=== PATIENT | male | born 1940 | race Caucasian/White ===

== ENCOUNTER 2022-08-05 06:00 | Emergency (ER) | payer MEDICARE ==
[~2022-08-05] VITALS: Ht 177.8 cm; Wt 63.5 kg
--- NOTE | 2022-08-05 06:05 | NUR ---
SREEKANTH 860 FROM HOME C/O LOST BALANCE WHILE IN THE RESTROOM. HIT HEAD ON WALL. -LOC -THINNERS. LAC ON HEAD. PT A/OX3. TOLERATING R/A WELL WITH NO RESP DISTRESS. SAFETY MEASURES IN PLACE.
--- NOTE | 2022-08-05 06:35 | NUR ---
DR OSBORN AT PT'S BEDSIDE APPLYING PATRICK TO SCALP
--- NOTE | 2022-08-05 06:44 | NUR ---
PT TAKEN TO CT VIA [facility]
--- NOTE | 2022-08-05 09:13 | NUR ---
wound care provided.Patient discharged to home in stable condition. Written and verbal after care instructions given. Patient verbalizes understanding of instruction.
[2022-08-05 09:16] VITALS: BP 126/65
== END 2022-08-05 09:17 | disposition home or self-care (01) ==
LOC: ER 06:04
DX: S01.81XA Laceration without foreign body of other part of head, initial encounter (principal); Z88.0 Allergy status to penicillin; W18.30XA Fall on same level, unspecified, initial encounter; Y93.89 Activity, other specified; Y92.89 Other specified places as the place of occurrence of the external cause; Y99.8 Other external cause status
CPT/HCPCS: 70450-TC; 72125-TC

== ENCOUNTER 2022-08-13 11:29 | Emergency (ER) | payer MEDICARE ==
[~2022-08-13] VITALS: Ht 172.7 cm; Wt 56.7 kg
[2022-08-13 11:40] VITALS: BP 140/56
--- NOTE | 2022-08-13 11:45 | NUR ---
THE PATIENT PRESENTED TO ER REQUESTING STAPLE REMOVAL ON TOP OF HEAD "APPLIED HERE 8 DAYS AGO". DENIES PAIN. WILL CONTINUE TO MONITOR THE PATIENT.
--- NOTE | 2022-08-13 13:05 | NUR ---
Patient discharged to home in stable condition. Written and verbal after care instructions given. Patient verbalizes understanding of instruction.
== END 2022-08-13 13:05 | disposition home or self-care (01) ==
LOC: ER 11:38
DX: S01.01XD Laceration without foreign body of scalp, subsequent encounter (principal); X58.XXXD Exposure to other specified factors, subsequent encounter
CPT/HCPCS: 99281; A6403

== ENCOUNTER 2022-08-15 13:52 | Emergency (ER) | payer MEDICARE ==
[~2022-08-15] VITALS: Ht 172.7 cm; Wt 59.4 kg
[2022-08-15] MEDS ORDERED: ACETAMINOPHEN ES 500 MG TABLET ONE (14:58)
[2022-08-15] MEDS ORDERED: IV NS 0.9% 500 ML BAG IV ONE (15:00)
[2022-08-15] MEDS ORDERED: ACETAMINOPHEN ES 500 MG TABLET PO ONE (15:00)
[2022-08-15 15:23] LABS: BASOPHILS # (AUTO) 0.1 K/uL (0.0-0.2); BASOPHILS % (AUTO) 0.9 % (0.0-2.0); EOSINOPHILS % (AUTO) 1.1 % (0.0-6.0); HEMATOCRIT 27 % (39-51); HEMOGLOBIN 8.3 g/dL (13.5-17.5); LYMPHOCYTES # (AUTO) 1.1 K/uL (0.8-4.8); LYMPHOCYTES % (AUTO) 12.1 % (20.0-44.0); MEAN CORPUSCULAR HGB CONC 31 g/dl (31.0-36.0); MEAN CORPUSCULAR VOLUME 90 fL (80-96); MONOCYTES # (AUTO) 1.3 K/uL (0.1-1.30); MONOCYTES % (AUTO) 13.7 % (2.0-12.0); NEUTROPHILS # (AUTO) 6.7 K/uL (1.8-8.9); NEUTROPHILS % (AUTO) 72.2 % (43.0-81.0); PLATELET COUNT (AUTO) 261 K/uL (150-450); RED BLOOD CELL COUNT(AUTO) 2.95 MIL/uL (4.5-6.0); WHITE BLOOD COUNT (AUTO) 9.2 K/uL (4.3-11.0)
--- NOTE | 2022-08-15 15:54 | NUR ---
bg [id number]
--- NOTE | 2022-08-15 15:54 | NUR ---
covid swab collected and sent to lab
[2022-08-15 16:02] LABS: CALCIUM, SERUM 8.6 mg/dL (8.5-10.1); CARBON DIOXIDE 22 mmol/L (21-32); CHLORIDE 99 mmol/L (98-107); CREATININE 1.6 mg/dL (0.6-1.3); GLUCOSE 125 mg/dL (74-106); POTASSIUM 3.8 mmol/L (3.5-5.1); SODIUM SERUM 133 mmol/L (136-145); UREA NITROGEN, BLOOD 33 mg/dL (7-18)
[2022-08-15 16:13] LABS: ALANINE AMINOTRANSFERASE 27 U/L (12-78); ALBUMIN 2.6 g/dL (3.4-5.0); ALKALINE PHOSPHATASE 54 U/L (46-116); ASPARTATE AMINOTRANSFERASE 30 U/L (15-37); BILIRUBIN,DIRECT 0.2 mg/dL (0.0-0.2); BILIRUBIN,TOTAL 0.6 mg/dL (0.2-1.0); LIPASE 23 U/L (73-393); TOTAL PROTEIN, SERUM 6.1 g/dL (6.4-8.2)
[2022-08-15 17:36] VITALS: BP 127/63
[2022-08-15 21:40] LABS: BAND % (MANUAL) 2 % (0.0-5.0); EOSINOPHILS % (MANUAL) 2 % (0-4); LYMPHOCYTES % (MANUAL) 20 % (16-48); MONOCYTES % (MANUAL) 4 % (0-11.0); NEUTROPHILS % (MANUAL) 72 (42-76)
== END 2022-08-15 17:37 | disposition home or self-care (01) ==
LOC: ER 13:55
DX: R41.0 Disorientation, unspecified (principal); E78.00 Pure hypercholesterolemia, unspecified; Z88.0 Allergy status to penicillin; Z20.822 Contact with and (suspected) exposure to COVID-19
CPT/HCPCS: 99285; 70450; 71045; 87426; 93005; 85025; 80048; 83690; 80076; 36415; 84484; 82962; 85007; J7030; C9803

== ENCOUNTER 2022-08-21 15:05 | Inpatient (IN) | payer MEDICARE ==
[~2022-08-21] VITALS: Ht 172.7 cm; Wt 55.8 kg
[2022-08-21] MEDS ORDERED: ACETAMINOPHEN 650 MG/SUPP.RECT RC ONE ×2 (16:28→16:30)
[2022-08-21] MEDS ORDERED: IV NS 0.9% 1,000 ML BAG IV ONE (16:30)
[2022-08-21 16:31] LABS: BASOPHILS % (AUTO) 0.2 % (0.0-2.0); EOSINOPHILS % (AUTO) 2.6 % (0.0-6.0); HEMATOCRIT 30 % (39-51); HEMOGLOBIN 9.3 g/dL (13.5-17.5); LYMPHOCYTES # (AUTO) 0.1 K/uL (0.8-4.8); LYMPHOCYTES % (AUTO) 1.3 % (20.0-44.0); MEAN CORPUSCULAR HGB CONC 31 g/dl (31.0-36.0); MEAN CORPUSCULAR VOLUME 87 fL (80-96); MONOCYTES # (AUTO) 1.8 K/uL (0.1-1.30); MONOCYTES % (AUTO) 16.1 % (2.0-12.0); NEUTROPHILS # (AUTO) 9.2 K/uL (1.8-8.9); NEUTROPHILS % (AUTO) 79.8 % (43.0-81.0); PLATELET COUNT (AUTO) 162 K/uL (150-450); RED BLOOD CELL COUNT(AUTO) 3.46 MIL/uL (4.5-6.0); WHITE BLOOD COUNT (AUTO) 11.5 K/uL (4.3-11.0)
[2022-08-21 16:42] LABS: BILIRUBIN,URINE NEGATIVE (NEGATIVE); COLOR,URINE YELLOW (YELLOW); LEUKOCYTE ESTERASE ,URINE NEGATIVE (NEGATIVE); NITRITE, URINE NEGATIVE (NEGATIVE); PH,URINE 6.5 (5.0-8.0); PROTEIN,URINE 1+ mg/dl (NEGATIVE); UGLUCOSE NEGATIVE (NEGATIVE); UROBILINOGEN,URINE 0.2 EU/dL (0.2)
[2022-08-21 16:45] LABS: CALCIUM, SERUM 9.1 mg/dL (8.5-10.1); CARBON DIOXIDE 24 mmol/L (21-32); CHLORIDE 101 mmol/L (98-107); CREATININE 1.3 mg/dL (0.6-1.3); GLUCOSE 119 mg/dL (74-106); POTASSIUM 3.6 mmol/L (3.5-5.1); SODIUM SERUM 135 mmol/L (136-145); UREA NITROGEN, BLOOD 17 mg/dL (7-18)
[2022-08-21 16:47] LABS: BACTERIA,URINE None seen /HPF (None Seen); SQUAMOUS EPITHELIAL CELL,UR 0-2 /HPF (None Seen); WBC,URINE 0-2 /HPF (0-3)
[2022-08-21 16:58] LABS: ALANINE AMINOTRANSFERASE 29 U/L (12-78); ALBUMIN 2.8 g/dL (3.4-5.0); ALKALINE PHOSPHATASE 73 U/L (46-116); ASPARTATE AMINOTRANSFERASE 36 U/L (15-37); BILIRUBIN,DIRECT 0.2 mg/dL (0.0-0.2); BILIRUBIN,TOTAL 0.8 mg/dL (0.2-1.0); TOTAL PROTEIN, SERUM 6.6 g/dL (6.4-8.2)
[2022-08-21 18:53] LABS: BAND % (MANUAL) 10 % (0.0-5.0); LYMPHOCYTES % (MANUAL) 16 % (16-48); MONOCYTES % (MANUAL) 9 % (0-11.0); MYELOCYTES % 1 % (0-0); NEUTROPHILS % (MANUAL) 64 (42-76)
[2022-08-21] MEDS ORDERED: oxyCODONE/APAP (5/325 MG) 1 UDTAB TABLET PO ONE (19:00)
[2022-08-21] MEDS ORDERED: oxyCODONE/APAP (5/325 MG) 1 UDTAB TABLET ONE (19:03)
[2022-08-21] MEDS ORDERED: MAG HYDROX/AL HYDROX/SIMETH 30 ML UDC PO PRN (20:30)
[2022-08-21] MEDS ORDERED: MAGNESIUM HYDROXIDE 30 ML UDC PO PRN (20:30)
[2022-08-21] MEDS ORDERED: ONDANSETRON HCL/PF 4 MG/2 ML VIAL IVP PRN (20:30)
[2022-08-21] MEDS ORDERED: TEMAZEPAM 15 MG CAPSULE PO PRN (20:30)
[2022-08-21] MEDS ORDERED: Z GUARD REMEDY 4 OZ OINT TP PRN (20:30)
[2022-08-21] MEDS: CEFEPIME 1 GM in IV D5W 50 ML IV SCH (21:00)
[2022-08-21 21:10] VITALS: BP 139/62
[2022-08-21] MEDS ORDERED: VANCOMYCIN 1 GM in IV D5W 250ml IV ONE (22:00)
[2022-08-21] MEDS: PANTOPRAZOLE 40 MG TABLET.DR PO SCH (22:07)
[2022-08-21] MEDS ORDERED: VANCOMYCIN 1 GM /D5W 250 ML PB IV ONE (22:12)
[2022-08-21] MEDS ORDERED: CEFEPIME 1 GM VIAL ONE (22:14)
[2022-08-21] MEDS: IV NS 0.9% 1,000 ML IV PRN (22:21)
[2022-08-22] VITALS (7 sets, daily range): BP systolic 109–160; BP diastolic 50–70
[2022-08-22] MEDS: oxyCODONE/APAP (5/325 MG) 1 UDTAB TABLET PO PRN ×4 (01:38→21:28)
[2022-08-22 06:51] LABS: CALCIUM, SERUM 8.3 mg/dL (8.5-10.1); CARBON DIOXIDE 25 mmol/L (21-32); CHLORIDE 105 mmol/L (98-107); CREATININE 1.4 mg/dL (0.6-1.3); GLUCOSE 110 mg/dL (74-106); MAGNESIUM 1.8 mg/dL (1.8-2.4); PHOSPHORUS 3.9 mg/dL (2.5-4.9); SODIUM SERUM 138 mmol/L (136-145); UREA NITROGEN, BLOOD 19 mg/dL (7-18)
[2022-08-22 07:03] LABS: BASOPHILS # (AUTO) 0.1 K/uL (0.0-0.2); BASOPHILS % (AUTO) 0.6 % (0.0-2.0); EOSINOPHILS % (AUTO) 2.5 % (0.0-6.0); HEMATOCRIT 27 % (39-51); HEMOGLOBIN 8.4 g/dL (13.5-17.5); LYMPHOCYTES # (AUTO) 0.2 K/uL (0.8-4.8); LYMPHOCYTES % (AUTO) 2.1 % (20.0-44.0); MEAN CORPUSCULAR HGB CONC 31 g/dl (31.0-36.0); MEAN CORPUSCULAR VOLUME 88 fL (80-96); MONOCYTES # (AUTO) 1.5 K/uL (0.1-1.30); MONOCYTES % (AUTO) 17.6 % (2.0-12.0); NEUTROPHILS # (AUTO) 6.5 K/uL (1.8-8.9); NEUTROPHILS % (AUTO) 77.2 % (43.0-81.0); PLATELET COUNT (AUTO) 117 K/uL (150-450); RED BLOOD CELL COUNT(AUTO) 3.05 MIL/uL (4.5-6.0); WHITE BLOOD COUNT (AUTO) 8.5 K/uL (4.3-11.0)
[2022-08-22 07:12] LABS: THYROID STIMULATING HORMONE 0.961 uIU/mL (0.358-3.74)
[2022-08-22] MEDS: PANTOPRAZOLE 40 MG TABLET.DR PO SCH (07:54)
[2022-08-22] MEDS: CEFEPIME 1 GM in IV D5W 50 ML IV SCH ×2 (08:55→20:53)
[2022-08-22] MEDS: VANCOMYCIN 500 MG in IV D5W 100ml IV SCH ×2 (10:23→22:17)
[2022-08-22] MEDS: ENSURE ENLIVE CHOC 237 ML CAN PO SCH ×2 (12:38→17:00)
[2022-08-22 15:14] LABS: FERRITIN 274 ng/mL (8-388)
[2022-08-22] MEDS: IV NS 0.9% 1,000 ML IV PRN (16:02)
[2022-08-22 16:14] LABS: TOTAL IRON BINDING CAPACITY 270 ug/dl (250-450)
[2022-08-22 16:25] LABS: IRON, SERUM 5 ug/dl (50-175)
[2022-08-22 18:08] LABS: BAND % (MANUAL) 9 % (0.0-5.0); EOSINOPHILS % (MANUAL) 4 % (0-4); LYMPHOCYTES % (MANUAL) 10 % (16-48); MONOCYTES % (MANUAL) 16 % (0-11.0); MYELOCYTES % 2 % (0-0); NEUTROPHILS % (MANUAL) 59 (42-76)
[2022-08-23] VITALS: BP 145/73
[2022-08-23] MEDS ORDERED: ASCO120G2 MC (02:16)
[2022-08-23] MEDS ORDERED: vit d3 (02:16)
[2022-08-23] MEDS ORDERED: ASPI-1169 PO (02:16)
[2022-08-23] MEDS ORDERED: RUXOLITINIB (02:16)
[2022-08-23] MEDS ORDERED: UBID100C5 PO (02:16)
[2022-08-23] MEDS ORDERED: DICY20TA11 PO (02:16)
[2022-08-23] MEDS ORDERED: CYAN-51 PO (02:16)
[2022-08-23] MEDS ORDERED: LACT1CAP71 PO (02:16)
[2022-08-23] MEDS ORDERED: FINA5TAB11 PO (02:16)
[2022-08-23] MEDS ORDERED: LUTE6CAP PO (02:16)
[2022-08-23] MEDS ORDERED: LORA-259 PO (02:16)
[2022-08-23] MEDS ORDERED: MULT-754 PO (02:16)
[2022-08-23] MEDS ORDERED: AMLO-213 PO (02:16)
[2022-08-23] MEDS ORDERED: FLUO10CA29 PO (02:16)
[2022-08-23 04:00] VITALS: BP 151/76
[2022-08-23] MEDS: IV NS 0.9% 1,000 ML IV PRN ×2 (05:58→22:05)
[2022-08-23 06:58] LABS: BASOPHILS # (AUTO) 0.1 K/uL (0.0-0.2); BASOPHILS % (AUTO) 1.3 % (0.0-2.0); CALCIUM, SERUM 8.3 mg/dL (8.5-10.1); CREATININE 1.3 mg/dL (0.6-1.3); EOSINOPHILS % (AUTO) 2.6 % (0.0-6.0); HEMATOCRIT 27 % (39-51); HEMOGLOBIN 8.2 g/dL (13.5-17.5); LYMPHOCYTES # (AUTO) 0.3 K/uL (0.8-4.8); LYMPHOCYTES % (AUTO) 2.8 % (20.0-44.0); MEAN CORPUSCULAR HGB CONC 30 g/dl (31.0-36.0); MEAN CORPUSCULAR VOLUME 91 fL (80-96); MONOCYTES # (AUTO) 1.6 K/uL (0.1-1.30); MONOCYTES % (AUTO) 15.8 % (2.0-12.0); NEUTROPHILS # (AUTO) 7.7 K/uL (1.8-8.9); NEUTROPHILS % (AUTO) 77.5 % (43.0-81.0); PLATELET COUNT (AUTO) 104 K/uL (150-450); POTASSIUM 3.5 mmol/L (3.5-5.1); WHITE BLOOD COUNT (AUTO) 9.9 K/uL (4.3-11.0)
[2022-08-23 08:00] VITALS: BP 141/70
[2022-08-23] MEDS: ENSURE ENLIVE CHOC 237 ML CAN PO SCH ×3 (08:00→17:05)
[2022-08-23] MEDS: CEFEPIME 1 GM in IV D5W 50 ML IV SCH (09:09)
[2022-08-23] MEDS: PANTOPRAZOLE 40 MG TABLET.DR PO SCH (09:10)
[2022-08-23 09:29] LABS: BAND % (MANUAL) 6 % (0.0-5.0); BASOPHILS % (MANUAL) 0 % (0.0-2.0); EOSINOPHILS % (MANUAL) 2 % (0-4); LYMPHOCYTES % (MANUAL) 4 % (16-48); MONOCYTES % (MANUAL) 14 % (0-11.0); NEUTROPHILS % (MANUAL) 74 (42-76)
[2022-08-23] MEDS: VANCOMYCIN 500 MG in IV D5W 100ml IV SCH (09:50)
[2022-08-23] MEDS: oxyCODONE/APAP (5/325 MG) 1 UDTAB TABLET PO PRN ×3 (09:50→21:52)
[2022-08-23] MEDS ORDERED: HYDR-3980 PO (11:49)
[2022-08-23] MEDS ORDERED: CHOL100043 PO (11:49)
[2022-08-23] MEDS ORDERED: LUTE20CA PO (11:49)
[2022-08-23] MEDS ORDERED: MULT-1169 PO (11:49)
[2022-08-23] MEDS ORDERED: ROSU20TA32 PO (11:49)
[2022-08-23] MEDS ORDERED: SIME80TA15 PO (11:49)
[2022-08-23] MEDS ORDERED: ASCO500T10 PO (11:49)
[2022-08-23] MEDS ORDERED: AZAC100V IV (11:49)
[2022-08-23] MEDS ORDERED: JAKAFI PO (11:49)
[2022-08-23] MEDS ORDERED: DARB60DI SQ (11:49)
[2022-08-23 12:00] VITALS: BP 147/67
[2022-08-23 12:07] LABS: IMMUNOGLOBULIN A, SERUM 61 mg/dL (61-437); IMMUNOGLOBULIN G, SERUM 645 mg/dL (603-1613); IMMUNOGLOBULIN M, SERUM 279 mg/dL (15-143)
[2022-08-23] MEDS ORDERED: LORAZEPAM 1 MG TABLET PO PRN (12:30)
[2022-08-23] MEDS ORDERED: SIMETHICONE 80 MG TAB.CHEW PO PRN (12:30)
[2022-08-23] MEDS: AMLODIPINE BESYLATE 10 MG TABLET PO SCH (13:08)
[2022-08-23 14:07] LABS: *ANA ANTI-CENTROMERE B AB <0.2 AI (0.0-0.9); *ANA ANTI-DNA(DS) AB, QN 2 IU/mL (0-9); *ANA ANTI-JO-1 <0.2 AI (0.0-0.9); *ANA ANTICHROMATIN ANTIBODY <0.2 AI (0.0-0.9); *ANA RNP ANTIBODIES <0.2 AI (0.0-0.9); *ANA SJOGREN'S ANTI-SS-A <0.2 AI (0.0-0.9); *ANA SJOGREN'S ANTI-SS-B <0.2 AI (0.0-0.9); *ANAANTI-SCLERODERMA-70 AB <0.2 AI (0.0-0.9); *ANASMITH AB <0.2 AI (0.0-0.9)
[2022-08-23] MEDS: ACETAMINOPHEN 325 MG TABLET PO PRN ×2 (14:18→19:13)
[2022-08-23] MEDS: SOD FERRIC GLUC 125 MG in IV NS 0.9% 100 ML IV SCH (14:18)
[2022-08-23 16:00] VITALS: BP 137/63
[2022-08-23 20:00] VITALS: BP 148/72
[2022-08-23] MEDS: ATORVASTATIN 40 MG TABLET PO SCH (21:10)
[2022-08-23] MEDS ORDERED: VANCOMYCIN HCL 0.75 GM in IV D5W 250 ML IV SCH (22:00)
[2022-08-23] MEDS ORDERED: MORPHINE SULFATE INJ 2 MG/ML DISP.SYRIN IV PRN (22:00)
[2022-08-24] VITALS: BP 128/50
[2022-08-24 04:00] VITALS: BP 131/54
[2022-08-24 06:06] LABS: *SPE A/G RATIO 1.1 (0.7-1.7); *SPE ALPHA-1-GLOBULIN 0.5 g/dL (0.0-0.4); *SPE ALPHA-2-GLOBULIN 0.5 g/dL (0.4-1.0); *SPE BETA GLOBULIN 0.6 g/dL (0.7-1.3); *SPE M-SPIKE 0.3 g/dL (Not Observed)
[2022-08-24 06:55] LABS: EOSINOPHILS % (AUTO) 2.7 % (0.0-6.0); HEMATOCRIT 29 % (39-51); LYMPHOCYTES # (AUTO) 0.3 K/uL (0.8-4.8); LYMPHOCYTES % (AUTO) 1.9 % (20.0-44.0); MEAN CORPUSCULAR HGB CONC 31 g/dl (31.0-36.0); MEAN CORPUSCULAR VOLUME 88 fL (80-96); MONOCYTES # (AUTO) 2.1 K/uL (0.1-1.30); MONOCYTES % (AUTO) 14.7 % (2.0-12.0); NEUTROPHILS # (AUTO) 11.3 K/uL (1.8-8.9); NEUTROPHILS % (AUTO) 80.7 % (43.0-81.0); PLATELET COUNT (AUTO) 128 K/uL (150-450); RED BLOOD CELL COUNT(AUTO) 3.35 MIL/uL (4.5-6.0)
[2022-08-24 07:00] LABS: CALCIUM, SERUM 8.8 mg/dL (8.5-10.1); CARBON DIOXIDE 25 mmol/L (21-32); CHLORIDE 103 mmol/L (98-107); CREATININE 1.1 mg/dL (0.6-1.3); GLUCOSE 94 mg/dL (74-106); POTASSIUM 3.4 mmol/L (3.5-5.1); SODIUM SERUM 137 mmol/L (136-145); UREA NITROGEN, BLOOD 17 mg/dL (7-18)
[2022-08-24] MEDS: PANTOPRAZOLE 40 MG TABLET.DR PO SCH (07:56)
[2022-08-24] MEDS: oxyCODONE/APAP (5/325 MG) 1 UDTAB TABLET PO PRN ×3 (07:57→20:10)
[2022-08-24 08:00] VITALS: BP 160/73
[2022-08-24] MEDS: ENSURE ENLIVE CHOC 237 ML CAN PO SCH ×3 (08:22→17:00)
[2022-08-24] MEDS: Fluoxetine 10 mg capsule PO SCH (08:59)
[2022-08-24] MEDS: ASPIRIN 81 MG TAB.CHEW PO SCH (08:59)
[2022-08-24] MEDS: ASCORBIC ACID 500 MG TABLET PO SCH (08:59)
[2022-08-24] MEDS: AMLODIPINE BESYLATE 10 MG TABLET PO SCH (08:59)
[2022-08-24] MEDS ORDERED: FINASTERIDE (5 MG) 5 MG TABLET PO SCH (09:00)
[2022-08-24] MEDS ORDERED: POTASSIUM CHLORIDE 20 MEQ TAB.PRT.SR PO SCH (10:30)
[2022-08-24 13:52] LABS: D-DIMER 2.23 mg/L(FEU (0.17-0.50)
[2022-08-24] MEDS: SOD FERRIC GLUC 125 MG in IV NS 0.9% 100 ML IV SCH (15:00)
[2022-08-24 16:00] VITALS: BP 136/68
[2022-08-24] MEDS: IV NS 0.9% 1,000 ML IV PRN (17:05)
[2022-08-24 20:00] VITALS: BP 151/64
[2022-08-24] MEDS: ATORVASTATIN 40 MG TABLET PO SCH (21:07)
[2022-08-25 04:00] VITALS: BP 135/57
[2022-08-25] MEDS: oxyCODONE/APAP (5/325 MG) 1 UDTAB TABLET PO PRN (04:28)
[2022-08-25] MEDS: IV NS 0.9% 1,000 ML IV PRN (06:08)
[2022-08-25 06:30] LABS: BASOPHILS % (AUTO) 0.3 % (0.0-2.0); EOSINOPHILS % (AUTO) 3.5 % (0.0-6.0); HEMATOCRIT 30 % (39-51); HEMOGLOBIN 9.2 g/dL (13.5-17.5); LYMPHOCYTES # (AUTO) 0.4 K/uL (0.8-4.8); LYMPHOCYTES % (AUTO) 2.7 % (20.0-44.0); MEAN CORPUSCULAR HGB CONC 30 g/dl (31.0-36.0); MEAN CORPUSCULAR VOLUME 87 fL (80-96); MONOCYTES # (AUTO) 2.6 K/uL (0.1-1.30); MONOCYTES % (AUTO) 18.9 % (2.0-12.0); NEUTROPHILS # (AUTO) 10.1 K/uL (1.8-8.9); NEUTROPHILS % (AUTO) 74.6 % (43.0-81.0); PLATELET COUNT (AUTO) 132 K/uL (150-450); RED BLOOD CELL COUNT(AUTO) 3.47 MIL/uL (4.5-6.0); WHITE BLOOD COUNT (AUTO) 13.5 K/uL (4.3-11.0)
[2022-08-25 06:31] LABS: D-DIMER 3.71 mg/L(FEU (0.17-0.50)
[2022-08-25 06:50] LABS: CALCIUM, SERUM 8.9 mg/dL (8.5-10.1); CREATININE 0.9 mg/dL (0.6-1.3); POTASSIUM 3.5 mmol/L (3.5-5.1)
[2022-08-25] MEDS: ENSURE ENLIVE CHOC 237 ML CAN PO SCH ×2 (08:28→12:00)
[2022-08-25 08:55] VITALS: BP 149/65
[2022-08-25] MEDS: ASPIRIN 81 MG TAB.CHEW PO SCH (08:55)
[2022-08-25] MEDS: PANTOPRAZOLE 40 MG TABLET.DR PO SCH (08:55)
[2022-08-25] MEDS: AMLODIPINE BESYLATE 10 MG TABLET PO SCH (08:55)
[2022-08-25] MEDS: ASCORBIC ACID 500 MG TABLET PO SCH (08:55)
[2022-08-25] MEDS: Fluoxetine 10 mg capsule PO SCH (08:55)
[2022-08-25 10:45] LABS: BAND % (MANUAL) 2 % (0.0-5.0); BASOPHILS % (MANUAL) 0 % (0.0-2.0); EOSINOPHILS % (MANUAL) 3 % (0-4); LYMPHOCYTES % (MANUAL) 5 % (16-48); MONOCYTES % (MANUAL) 14 % (0-11.0); NEUTROPHILS % (MANUAL) 76 (42-76)
[2022-08-27] MEDS ORDERED: OXYC-133 PO (12:12)
== END 2022-08-25 14:50 | disposition home or self-care (01) | DRG 871 ==
LOC: ER 15:12 → MEDSG1 20:23 → TELE1 21:28 → MEDSG1 08-24 10:45
PROVIDERS: ADMIT Nurse Practitioner Acute Care
DX: A41.9 Sepsis, unspecified organism (principal); E43 Unspecified severe protein-calorie malnutrition; E87.1 Hypo-osmolality and hyponatremia; D75.81 Myelofibrosis; R64 Cachexia; Z68.1 Body mass index [BMI] 19.9 or less, adult; D61.818 Other pancytopenia; G93.40 Encephalopathy, unspecified; E86.1 Hypovolemia; E78.00 Pure hypercholesterolemia, unspecified; Z20.822 Contact with and (suspected) exposure to COVID-19; Z88.0 Allergy status to penicillin; D46.9 Myelodysplastic syndrome, unspecified; Z98.890 Other specified postprocedural states; Z87.891 Personal history of nicotine dependence; D63.8 Anemia in other chronic diseases classified elsewhere; K40.90 Unilateral inguinal hernia, without obstruction or gangrene, not specified as recurrent; D50.9 Iron deficiency anemia, unspecified; E87.6 Hypokalemia; I10 Essential (primary) hypertension; R91.8 Other nonspecific abnormal finding of lung field; R79.89 Other specified abnormal findings of blood chemistry; N25.0 Renal osteodystrophy; D47.2 Monoclonal gammopathy
CPT/HCPCS: 36415; 70450-TC; 71045-TC; 71250-TC; 80048-TC; 80076-TC; 80202-TC; 81001; 82232; 82378; 82607-TC; 82728-TC; 82784; 82962-TC; 83540-TC; 83605-TC; 83735-TC; 84100-TC; 84155; 84165; 84443-TC; 84484-TC; 85025-TC; 85396; 85730-TC; 86225; 86235; 86334; 86431-TC; 86706; 86803; 87040-TC; 87081-TC; 87086-TC; 87340; 97112-TC; 97116-TC; 97530-TC; A4223; G0378; J0692; J2270; J2916; J3370; J7030; J7060

== ENCOUNTER 2022-12-26 10:18 | Emergency (ER) | payer MEDICARE ==
[~2022-12-26] VITALS: Ht 175.3 cm; Wt 47.2 kg
[~2022-12-26 10:18] MED LIST: AMLO-213 PO; ASCO500T10 PO; ASPI-1169 PO; AZAC100V IV; CHOL100043 PO; CYAN-51 PO; DARB60DI SQ; FINA5TAB11 PO; FLUO10CA29 PO; JAKAFI PO; LACT1CAP71 PO; LORA-259 PO; LUTE20CA PO; MULT-1169 PO; OXYC-133 PO; ROSU20TA32 PO; SIME80TA15 PO; UBID100C5 PO
[2022-12-26] MEDS ORDERED: LIDOCAINE 1%-EPI 1:100,000 20 ML VIAL ONE (10:35)
[2022-12-26] MEDS ORDERED: LIDOCAINE 2% 50 ML MDV IJ ONE (10:47)
[2022-12-26] MEDS ORDERED: BACI/NEOM/POLY B OINT PKT 1 UDPKT PACKET ONE (10:59)
[2022-12-26 11:21] LABS: ALANINE AMINOTRANSFERASE 19 U/L (12-78); ALBUMIN 2.2 g/dL (3.4-5.0); ALKALINE PHOSPHATASE 66 U/L (46-116); ASPARTATE AMINOTRANSFERASE 19 U/L (15-37); BILIRUBIN,DIRECT 0.1 mg/dL (0.0-0.2); BILIRUBIN,TOTAL 0.3 mg/dL (0.2-1.0); CALCIUM, SERUM 8.6 mg/dL (8.5-10.1); CARBON DIOXIDE 24 mmol/L (21-32); CHLORIDE 102 mmol/L (98-107); CREATININE 1.1 mg/dL (0.6-1.3); GLUCOSE 118 mg/dL (74-106); POTASSIUM 4.2 mmol/L (3.5-5.1); SODIUM SERUM 134 mmol/L (136-145); TOTAL PROTEIN, SERUM 5.8 g/dL (6.4-8.2); UREA NITROGEN, BLOOD 23 mg/dL (7-18)
[2022-12-26 11:23] LABS: INR 1.3 (0.91-1.10); PROTHROMBIN TIME 13.5 SECS (9.2-11.1)
[2022-12-26 11:28] LABS: BASOPHILS # (AUTO) 0.1 K/uL (0.0-0.2); BASOPHILS % (AUTO) 0.6 % (0.0-2.0); EOSINOPHILS # (AUTO) 0.2 K/uL (0.0-0.7); EOSINOPHILS % (AUTO) 2.2 % (0.0-6.0); HEMATOCRIT 22 % (39-51); LYMPHOCYTES # (AUTO) 0.4 K/uL (0.8-4.8); MEAN CORPUSCULAR HEMOGLOBIN 28 PG (26.0-33.0); MEAN CORPUSCULAR HGB CONC 32 g/dl (31.0-36.0); MEAN CORPUSCULAR VOLUME 86 fL (80-96); MONOCYTES # (AUTO) 0.7 K/uL (0.1-1.30); MONOCYTES % (AUTO) 7.2 % (2.0-12.0); PLATELET COUNT (AUTO) 254 K/uL (150-450); RED BLOOD CELL COUNT(AUTO) 2.54 MIL/uL (4.5-6.0); RED CELL DISTRIBUTION WIDTH 20.3 % (11.5-15.0); WHITE BLOOD COUNT (AUTO) 9.4 K/uL (4.3-11.0)
[2022-12-26 12:06] VITALS: BP 110/60; TEMP 98.3; O2SAT 100
[2022-12-26 13:59] LABS: ANISOCYTOSIS 2+; BAND % (MANUAL) 19 % (0.0-5.0); BASOPHILS % (MANUAL) 1 % (0.0-2.0); EOSINOPHILS % (MANUAL) 2 % (0-4); LYMPHOCYTES % (MANUAL) 15 % (16-48); METAMYELOCYTES % 2 % (0-0); MONOCYTES % (MANUAL) 7 % (0-11.0); NEUTROPHILS % (MANUAL) 54 (42-76); PLATELET ESTIMATE ADEQUATE
== END 2022-12-26 12:03 | disposition home or self-care (01) ==
LOC: ER 10:24
DX: S01.511A Laceration without foreign body of lip, initial encounter (principal); D46.9 Myelodysplastic syndrome, unspecified; Z79.899 Other long term (current) drug therapy; W06.XXXA Fall from bed, initial encounter; Y93.89 Activity, other specified; Y92.89 Other specified places as the place of occurrence of the external cause; Y99.8 Other external cause status
CPT/HCPCS: 36415; 40650; 70450; 71045; 80048; 80076; 84484; 85007; 85025; 85730; 86850; 93005; 99285; A6403; J3490